=== PATIENT | male | born 1995 | race Caucasian/White ===

== ENCOUNTER → 2022-07-28 | Outpatient (CLI) | payer OTHER | LOC: M RAD 14:29 | DX: M54.6 Pain in thoracic spine (principal) ==

== ENCOUNTER → 2022-08-01 | Outpatient (CLI) | payer OTHER | LOC: M RAD 11:08 → EDUNIT# 11:30 | DX: M54.50 Low back pain, unspecified (principal) ==

== ENCOUNTER 2022-09-14 07:34 | Emergency (ER) | payer OTHER ==
[~2022-09-14] VITALS: Ht 180.3 cm; Wt 91.1 kg
[2022-09-14] MEDS ORDERED: ISOVUE-370 76% 100ML VIAL As Ordered ONE (10:38)
[2022-09-14 10:42] LABS: BASO # 0.1 10^3/uL (0.0-0.2); EOS # 0.2 10^3/uL (0.0-0.5); EOS % 4.4 % (0.0-3.0); HEMATOCRIT 45.7 % (42.0-52.0); HEMOGLOBIN 15.1 g/dl (13.5-17.5); LYMPH # 1.8 10^3/uL (1.5-5.0); LYMPH % 35.5 % (24.0-44.0); MEAN CORPUSCULAR HEMOGLOBIN 30.7 pg (27.0-33.0); MEAN CORPUSCULAR VOLUME 92.9 fl (80.0-96.0); MONO # 0.4 10^3/uL (0.0-0.8); MONO % 7.6 % (2.0-8.0); NEUTROPHILS # 2.6 10^3/uL (1.5-8.5); NEUTROPHILS % 51.3 % (36.0-66.0); RED BLOOD COUNT 4.92 10^6/uL (4.30-6.10)
[2022-09-14] MEDS ORDERED: BACT800T5 PO (12:26)
[2022-09-14 12:38] VITALS: BP 130/70
[2022-09-14 12:45] LABS: GC DNA AMPLIFICATION NEGATIVE (NEGATIVE)
== END 2022-09-14 12:57 | disposition home or self-care (01) ==
LOC: M ED 07:34
DX: N45.2 Orchitis (principal); N17.9 Acute kidney failure, unspecified; L05.01 Pilonidal cyst with abscess; M54.50 Low back pain, unspecified; Z79.899 Other long term (current) drug therapy